=== PATIENT | female | born 1975 | race Caucasian/White ===

== ENCOUNTER 2025-04-12 10:24 | Emergency (ER) | payer MEDICARE, MEDICAID, OTHER ==
[~2025-04-12] VITALS: Ht 157.5 cm; Wt 91.6 kg
[2025-04-12 10:28] VITALS: BP 136/69; TEMP 97.1; O2SAT 97
[2025-04-12] MEDS: KETOROLAC TROMETHAMINE 10 MG TAB PO ONE (10:49)
[2025-04-12] MEDS: MORPHINE 4 MG/ML 1 ML VIAL IV ONE (11:39)
[2025-04-12] MEDS: AMPICILLIN SOD/SULBACTAM SOD 3 GM in DEXTROSE 5% (D5W) MINI-BAG PLU 100 ML IV ONE (11:40)
[2025-04-12] MEDS: ONDANSETRON 4MG/2ML VIAL IV ONE (11:40)
[2025-04-12] MEDS: TETANUS/DIPHTH/ACEL. PERTUSSIS 0.5 ML SYR IM.IMMUN ONE (11:41)
[2025-04-12] MEDS: LIDOCAINE 1% MDV 20 ML VIAL SC ONE (11:49)
[2025-04-12] MEDS ORDERED: IBUP80TA PO (13:03)
[2025-04-12] MEDS ORDERED: AMOX875T2 PO (13:03)
[2025-04-12] MEDS ORDERED: HYDR-3713 PO (13:32)
== END 2025-04-12 13:38 | disposition home or self-care (01) ==
LOC: M ED 10:24
DX: S61.412A Laceration without foreign body of left hand, initial encounter (principal); S81.812A Laceration without foreign body, left lower leg, initial encounter; S81.832A Puncture wound without foreign body, left lower leg, initial encounter; W54.0XXA Bitten by dog, initial encounter; Y92.038 Other place in apartment as the place of occurrence of the external cause; Y93.9 Activity, unspecified; Y99.9 Unspecified external cause status; F41.9 Anxiety disorder, unspecified; Z88.6 Allergy status to analgesic agent; Z88.5 Allergy status to narcotic agent
CPT/HCPCS: 12004; 73130; 73590; 90471; 90715; 96365; 96366; 96375; 99284; J0295; J2405

== ENCOUNTER 2025-04-18 16:30 | Emergency (ER) | payer MEDICARE, MEDICAID ==
[~2025-04-18] VITALS: Ht 157.5 cm; Wt 94.5 kg
[~2025-04-18 16:30] MED LIST: AMOX875T2 PO; HYDR-3713 PO; IBUP80TA PO
[2025-04-18] MEDS ORDERED: MIRT-10 (16:50)
[2025-04-18] MEDS ORDERED: PANT40TA29 (16:50)
[2025-04-18] MEDS ORDERED: DESV100T3 (16:50)
[2025-04-18] MEDS ORDERED: CLON1TAB8 (16:50)
[2025-04-18 17:48] LABS: BASO # 0.1 10^3/uL (0.0-0.2); BASO % 0.9 % (0.0-1.0); EOS # 0.2 10^3/uL (0.0-0.5); EOS % 2.3 % (0.0-3.0); LYMPH # 2.7 10^3/uL (1.5-5.0); LYMPH % 34.3 % (24.0-44.0); MONO # 0.4 10^3/uL (0.0-0.8); MONO % 5.2 % (2.0-8.0); NEUTROPHILS # 4.5 10^3/uL (1.5-8.5); NEUTROPHILS % 57.2 % (36.0-66.0); PLATELET COUNT, AUTOMATED 392 10^3/uL (150-450)
[2025-04-18 17:53] LABS: CALCIUM LEVEL 8.7 MG/DL (8.5-10.1); CARBON DIOXIDE LEVEL 30.0 MMOL/L (20-31); CHLORIDE LEVEL 105.0 MMOL/L (98-107); CREATININE FOR GFR 1.05 MG/DL (0.55-1.30); GLOMERULAR FILTRATION RATE 65.5 (>58); POTASSIUM SERUM 4.4 MMOL/L (3.5-5.1); SODIUM LEVEL 143.0 MMOL/L (136-145)
[2025-04-18] MEDS ORDERED: NAPR-837 PO (20:58)
[2025-04-18] MEDS ORDERED: BACI500O8 TOP (21:01)
[2025-04-18] MEDS: NEOSPORIN OINT 0.9 GM PKT TOP ONE (21:10)
[2025-04-18 21:22] VITALS: BP 125/75; TEMP 97.6; O2SAT 99
[2025-04-18] MEDS ORDERED: AMOX875T2 PO (21:34)
== END 2025-04-18 21:24 | disposition home or self-care (01) ==
LOC: M ED 16:30
DX: S61.412D Laceration without foreign body of left hand, subsequent encounter (principal); S91.012D Laceration without foreign body, left ankle, subsequent encounter; R22.42 Localized swelling, mass and lump, left lower limb; M79.642 Pain in left hand; W54.0XXD Bitten by dog, subsequent encounter; Y92.9 Unspecified place or not applicable; Y93.9 Activity, unspecified; Y99.9 Unspecified external cause status; Z88.5 Allergy status to narcotic agent